=== PATIENT | male | born 1930 | race Caucasian/White ===

== ENCOUNTER 2016-12-31 09:20 | Inpatient (IN) | payer OTHER ==
[2016-12-31 09:25] VITALS: BMI 31.2
== END 2016-12-31 11:52 | disposition home or self-care (01) | DRG 467 ==
LOC: C.7T 09:20
PROVIDERS: ADMIT Internal Medicine; ATTEND Internal Medicine
DX: Z02.89 Encounter for other administrative examinations (principal)